=== PATIENT | female | born 1970 | race Caucasian/White ===

== ENCOUNTER 2017-03-25 07:48 | Outpatient (CLI) | payer BC, OTHER | END 2017-03-25 23:00 | LOC: LAB SRH 07:48 | DX: I10 Essential (primary) hypertension (principal); Z13.1 Encounter for screening for diabetes mellitus; E78.5 Hyperlipidemia, unspecified | CPT/HCPCS: 90073; 90074; 90075; 90077; 90078; 90100; 91096; 91286; 92690; 93140; 99777 ==